=== PATIENT | female | born 1955 | race Caucasian/White ===

== ENCOUNTER 2021-06-07 13:46 | Emergency (ER) | payer OTHER ==
[2021-06-07] MEDS ORDERED: Sodium Chloride 0.9% 10 ML Syringe FLUSH PRN (14:29)
[2021-06-07] MEDS ORDERED: Ondansetron 4 MG/2 ML SDV IVPUSH ONE (14:33)
[2021-06-07] MEDS ORDERED: Sodium Chloride 0.9% 1,000 ML IV SCH ×2 (14:45→17:15)
[2021-06-07 15:20] LABS: CORONAVIRUS COVID-19 NAA NEGATIVE (NEGATIVE); RESPIRATORY SYNCYTIAL VIR NAA NEGATIVE (NEGATIVE)
[2021-06-07] MEDS ORDERED: Acetaminophen 500 MG Tab PO ONE (15:45)
--- NOTE | 2021-06-07 15:53 | CR ---
[id number] RAD/RAD Chest PA or AP 1V EXAM: RAD Chest PA or AP 1V INDICATION: FEVER, CHILLS, WEAKNESS. COMPARISON: None. DISCUSSION: Cardiomediastinal silhouette is normal in size and contour. Subtle pulmonary infiltrates overlying the lungs bilaterally. No pneumothorax or pleural effusion. IMPRESSION: Subtle pulmonary infiltrates overlying the lungs bilaterally. Findings may be infectious/inflammatory as can be seen with atypical/viral pneumonia. Chris Clark DO 06/07/21 [id number] Thank you for allowing us to participate in the care of your patient.
[2021-06-07] MEDS ORDERED: cefTRIAXone 2 GM Vial IVPUSH ONE (15:59)
[2021-06-07] MEDS ORDERED: Doxycycline 100 MG Cap PO ONE (16:02)
[2021-06-07 16:25] LABS: ANION GAP 12.5 mmol/L (5-15); CHLORIDE,CL 98 mmol/L (98-107); SODIUM,NA 131 mmol/L (136-145)
--- NOTE | 2021-06-07 21:37 | EDM.PDOC ---
ED HPI GENERAL MEDICAL PROBLEM - General Chief Complaint: Fever Stated Complaint: Fever, Nausea Time Seen by Provider: 06/07/21 15:05 Source of Information: Reports: Patient History Limitations: Reports: No Limitations - History of Present Illness INITIAL COMMENTS - FREE TEXT/NARRATIVE: Pt. presents to ER with complaints of nausea, vomiting, fever, chills, fatigue and global weakness. She states that she has been feeling poorly for about 4 days. She was seen in the clinic for the same yesterday, and advised to come to ER if not gradually improving. Pt. states that she has not been taking any tylenol as is makes her nauseous, despite premedication with zofran ODT. She denies any substernal chest pain. No shortness of breath. states that she appear more fatigued than normal. He states that she is slower to respond, but her speech has been fluent and her gait has been normal. He is concerned that she is dehydrated. She was told that she was at the clinic yesterday at the clinic and to come to the ER, as they were unable to get an IV started. She states that her appetite has been poor but she is able to hold down fluids. She was given some Zofran ODT but states that she is still unable to take tylenol due to nausea, despite using the zofran. She has had some minor cough. She was screened for covid yesterday which was negative. Onset: Today Onset Date: 06/07/21 Location: Reports: Abdomen, Generalized Associated Symptoms: Reports: Cough, Fever/Chills, Nausea/Vomiting Headache / Body Aches Pain Score (Numeric/FACES): 2 - Related Data Allergies Allergy/AdvReac Type Severity Reaction Status Date / Time erythromycin base Allergy Stomach Verified 06/07/21 16:03 Upset Home Meds: Home Meds . [Unable to Verify Home Med List] 06/07/21 [History] Social & Family History - Tobacco Use Tobacco Use Status *Q: Never Tobacco User - Recreational Drug Use Recreational Drug Use: No ED ROS GENERAL - Review of Systems Review Of Systems: See Below Constitutional: Reports: Fever, Chills, Malaise, Weakness, Fatigue, Decreased Appetite HEENT: Reports: No Symptoms Respiratory: Reports: No Symptoms Cardiovascular: Reports: No Symptoms Endocrine: Reports: No Symptoms GI/Abdominal: Reports: No Symptoms : Reports: No Symptoms Musculoskeletal: Reports: No Symptoms Skin: Reports: No Symptoms Neurological: Reports: No Symptoms Psychiatric: Reports: No Symptoms Hematologic/Lymphatic: Reports: No Symptoms Immunologic: Reports: No Symptoms ED EXAM, GENERAL - Physical Exam Exam: See Below Exam Limited By: No Limitations General Appearance: Alert, WD/WN, No Apparent Distress Throat/Mouth: Normal Inspection, Normal Lips, Normal Teeth, Normal Gums, Normal Oropharynx, Normal Voice, No Airway Compromise Head: Atraumatic, Normocephalic Neck: Normal Inspection, Supple, Non-Tender, Full Range of Motion Respiratory/Chest: No Respiratory Distress, Normal Breath Sounds, No Accessory Muscle Use, Chest Non-Tender, Other (lungs diminshed in the base) Cardiovascular: Normal Peripheral Pulses, Regular Rate, Rhythm, No Edema, No JVD Peripheral Pulses: 4+: Radial (L) GI/Abdominal: Soft, Non-Tender, No Distention, No Mass (Female) Exam: Deferred Rectal (Female) Exam: Deferred Back Exam: Normal Inspection, Full Range of Motion Extremities: Normal Inspection, Normal Range of Motion, Non-Tender, No Pedal Edema, Normal Capillary Refill Neurological: Alert, Oriented, CN II-XII Intact, Normal Cognition, Normal Gait, Normal Reflexes, No Motor/Sensory Deficits Psychiatric: Normal Affect, Normal Mood Course - Vital Signs Last Recorded V/S: Last Vital Signs Temp 38.7 C H 06/07/21 15:58 Pulse 84 06/07/21 15:00 Resp 12 06/07/21 15:00 BP 138/67 06/07/21 15:00 Pulse Ox 98 06/07/21 15:00 - Orders/Labs/Meds Orders: Active Orders 24 hr Category Date Time Status CULTURE BLOOD [BC] Stat Lab 06/07/21 15:36 Results CULTURE BLOOD [BC] Stat Lab 06/07/21 16:16 Results Blood Culture x2 Reflex Set [OM.PC] Stat Oth 06/07/21 14:30 Ordered Peripheral IV Insertion Adult [OM.PC] Routine Oth 06/07/21 14:30 Ordered Labs: Laboratory Tests 06/07/21 06/07/21 06/07/21 Range/Units 14:32 15:36 15:36 WBC 16.4 H (4.0-10.0) x10^3/uL RBC 4.44 (4.00-5.50) x10^6/uL Hgb 13.1 (12.0-16.0) g/dL Hct 37.8 (33.0-47.0) % MCV 85.1 (78.0-93.0) fL MCH 29.5 (26.0-32.0) pg MCHC 34.7 (32.0-36.0) g/dL RDW Coeff of Yehuda 12.3 (10.0-15.0) % Plt Count 189 (130-400) x10^3/uL Add Manual Diff Yes Neutrophils % (Manual) 92 H (50-80) % Lymphocytes % (Manual) 4 L (25-50) % Reactive Lymphs % 2 H (0) % Monocytes % (Manual) 2 (2-11) % Hypersegmented Neuts Rare H Smudge Cells Rare H Platelet Estimate Adequate Giant Platelets Rare H PT 10.4 (9.9-12.5) SEC INR 0.9 L (2.0-3.5) Sodium (136-145) mmol/L Potassium (3.5-5.1) mmol/L Chloride (98-107) mmol/L Carbon Dioxide (21-32) mmol/L Anion Gap (5-15) mmol/L BUN (7-18) mg/dL Creatinine (0.55-1.02) mg/dL Est Cr Clr Drug Dosing Estimated GFR (MDRD) Glucose (70-99) mg/dL Lactic Acid (0.4-2.0) mmol/L Calcium (8.5-10.1) mg/dL Corrected Calcium (8.5-10.1) mg/dL Phosphorus (2.6-4.7) mg/dL Magnesium (1.8-2.4) mg/dL Total Bilirubin (0.2-1.0) mg/dL AST (15-37) U/L ALT (14-59) U/L Alkaline Phosphatase (46-116) U/L Troponin I High Sens (<=51) ng/L NT-Pro-B Natriuret Pep (<=125) pg/mL Total Protein (6.4-8.2) g/dL Albumin (3.4-5.0) g/dL Globulin Albumin/Globulin Ratio Procalcitonin (0.1-0.50) ng/mL Urine Color (YELLOW) Urine Appearance (CLEAR) Urine pH (5.0-8.0) Ur Specific [place] Urine Protein (NEGATIVE) mg/dL Urine Glucose (UA) (NEGATIVE) mg/dL Urine Ketones (NEGATIVE) mg/dL Urine Occult Blood (NEGATIVE) Urine Nitrite (NEGATIVE) Urine Bilirubin (NEGATIVE) Urine Urobilinogen (0.2) EU/dL Ur Leukocyte Esterase (NEGATIVE) Urine RBC (NOT SEEN) /HPF Urine WBC (NOT SEEN) /HPF Ur Squamous Epith Cells (NOT SEEN) /HPF Urine Bacteria (NOT SEEN) /HPF Urine Mucus (NOT SEEN) /LPF Influenza Type A RNA Negative (NEGATIVE) RSV RNA (INAAT) Negative (NEGATIVE) Influenza Type B RNA Negative (NEGATIVE) SARS-CoV-2 RNA (RODRIGUEZ) Negative (NEGATIVE) 06/07/21 06/07/21 06/07/21 Range/Units 15:36 15:36 16:16 WBC (4.0-10.0) x10^3/uL RBC (4.00-5.50) x10^6/uL Hgb (12.0-16.0) g/dL Hct (33.0-47.0) % MCV (78.0-93.0) fL MCH (26.0-32.0) pg MCHC (32.0-36.0) g/dL RDW Coeff of Yehuda (10.0-15.0) % Plt Count (130-400) x10^3/uL Add Manual Diff Neutrophils % (Manual) (50-80) % Lymphocytes % (Manual) (25-50) % Reactive Lymphs % (0) % Monocytes % (Manual) (2-11) % Hypersegmented Neuts Smudge Cells Platelet Estimate Giant Platelets PT (9.9-12.5) SEC INR (2.0-3.5) Sodium 131 L (136-145) mmol/L Potassium 3.5 (3.5-5.1) mmol/L Chloride 98 (98-107) mmol/L Carbon Dioxide 24 (21-32) mmol/L Anion Gap 12.5 (5-15) mmol/L BUN 13 (7-18) mg/dL Creatinine 1.0 (0.55-1.02) mg/dL Est Cr Clr Drug Dosing TNP Estimated GFR (MDRD) 56 Glucose 106 H (70-99) mg/dL Lactic Acid 1.0 (0.4-2.0) mmol/L Calcium 8.6 (8.5-10.1) mg/dL Corrected Calcium 9.2 (8.5-10.1) mg/dL Phosphorus 2.1 L (2.6-4.7) mg/dL Magnesium 1.9 (1.8-2.4) mg/dL Total Bilirubin 0.6 (0.2-1.0) mg/dL AST 16 (15-37) U/L ALT 20 (14-59) U/L Alkaline Phosphatase 65 (46-116) U/L Troponin I High Sens 41 (<=51) ng/L NT-Pro-B Natriuret Pep 1147 H (<=125) pg/mL Total Protein 6.7 (6.4-8.2) g/dL Albumin 3.3 L (3.4-5.0) g/dL Globulin 3.4 Albumin/Globulin Ratio 0.97 Procalcitonin <0.05 L (0.1-0.50) ng/mL Urine Color (YELLOW) Urine Appearance (CLEAR) Urine pH (5.0-8.0) Ur Specific [place] Urine Protein (NEGATIVE) mg/dL Urine Glucose (UA) (NEGATIVE) mg/dL Urine Ketones (NEGATIVE) mg/dL Urine Occult Blood (NEGATIVE) Urine Nitrite (NEGATIVE) Urine Bilirubin (NEGATIVE) Urine Urobilinogen (0.2) EU/dL Ur Leukocyte Esterase (NEGATIVE) Urine RBC (NOT SEEN) /HPF Urine WBC (NOT SEEN) /HPF Ur Squamous Epith Cells (NOT SEEN) /HPF Urine Bacteria (NOT SEEN) /HPF Urine Mucus (NOT SEEN) /LPF Influenza Type A RNA (NEGATIVE) RSV RNA (INAAT) (NEGATIVE) Influenza Type B RNA (NEGATIVE) SARS-CoV-2 RNA (RODRIGUEZ) (NEGATIVE) 06/07/21 Range/Units 16:45 WBC (4.0-10.0) x10^3/uL RBC (4.00-5.50) x10^6/uL Hgb (12.0-16.0) g/dL Hct (33.0-47.0) % MCV (78.0-93.0) fL MCH (26.0-32.0) pg MCHC (32.0-36.0) g/dL RDW Coeff of Yehuda (10.0-15.0) % Plt Count (130-400) x10^3/uL Add Manual Diff Neutrophils % (Manual) (50-80) % Lymphocytes % (Manual) (25-50) % Reactive Lymphs % (0) % Monocytes % (Manual) (2-11) % Hypersegmented Neuts Smudge Cells Platelet Estimate Giant Platelets PT (9.9-12.5) SEC INR (2.0-3.5) Sodium (136-145) mmol/L Potassium (3.5-5.1) mmol/L Chloride (98-107) mmol/L Carbon Dioxide (21-32) mmol/L Anion Gap (5-15) mmol/L BUN (7-18) mg/dL Creatinine (0.55-1.02) mg/dL Est Cr Clr Drug Dosing Estimated GFR (MDRD) Glucose (70-99) mg/dL Lactic Acid (0.4-2.0) mmol/L Calcium (8.5-10.1) mg/dL Corrected Calcium (8.5-10.1) mg/dL Phosphorus (2.6-4.7) mg/dL Magnesium (1.8-2.4) mg/dL Total Bilirubin (0.2-1.0) mg/dL AST (15-37) U/L ALT (14-59) U/L Alkaline Phosphatase (46-116) U/L Troponin I High Sens (<=51) ng/L NT-Pro-B Natriuret Pep (<=125) pg/mL Total Protein (6.4-8.2) g/dL Albumin (3.4-5.0) g/dL Globulin Albumin/Globulin Ratio Procalcitonin (0.1-0.50) ng/mL Urine Color Light yellow (YELLOW) Urine Appearance Clear (CLEAR) Urine pH 6.0 (5.0-8.0) Ur Specific [place] 1.010 Urine Protein Negative (NEGATIVE) mg/dL Urine Glucose (UA) Negative (NEGATIVE) mg/dL Urine Ketones 15 H (NEGATIVE) mg/dL Urine Occult Blood Trace-lysed H (NEGATIVE) Urine Nitrite Negative (NEGATIVE) Urine Bilirubin Negative (NEGATIVE) Urine Urobilinogen 0.2 (0.2) EU/dL Ur Leukocyte Esterase Negative (NEGATIVE) Urine RBC 0-5 (NOT SEEN) /HPF Urine WBC 0-5 (NOT SEEN) /HPF Ur Squamous Epith Cells Moderate H (NOT SEEN) /HPF Urine Bacteria Not seen (NOT SEEN) /HPF Urine Mucus Not seen (NOT SEEN) /LPF Influenza Type A RNA (NEGATIVE) RSV RNA (INAAT) (NEGATIVE) Influenza Type B RNA (NEGATIVE) SARS-CoV-2 RNA (RODRIGUEZ) (NEGATIVE) Meds: Medications Discontinued Medications Generic Name Dose Route Start Last Admin Trade Name Freq PRN Reason Stop Dose Admin Acetaminophen 500 mg 06/07/21 15:45 06/07/21 15:58 Acetaminophen 500 Mg Tab PO 06/07/21 15:46 500 mg ONETIME ONE Administration Ceftriaxone Sodium 2 gm 06/07/21 15:59 06/07/21 16:10 Ceftriaxone 2 Gm Vial IVPUSH 06/07/21 16:00 2 gm STAT ONE Administration Doxycycline Hyclate 100 mg 06/07/21 16:02 06/07/21 16:10 Doxycycline 100 Mg Cap PO 06/07/21 16:03 100 mg ONETIME ONE Administration Sodium Chloride 1,000 mls @ 1,000 mls/hr 06/07/21 14:45 06/07/21 15:21 Normal Saline IV 1,000 mls/hr ASDIRECTED DARIAN Administration Sodium Chloride 1,000 mls @ 1,000 mls/hr 06/07/21 17:15 06/07/21 17:14 Normal Saline IV 1,000 mls/hr ASDIRECTED DARIAN Administration Ondansetron HCl 4 mg 06/07/21 14:33 06/07/21 15:25 Ondansetron 4 Mg/2 Ml Sdv IVPUSH 06/07/21 14:34 4 mg ONETIME ONE Administration Sodium Chloride 10 ml 06/07/21 14:29 Sodium Chloride 0.9% 10 Ml Syringe FLUSH ASDIRECTED PRN Keep Vein Open - Radiology Interpretation Free Text/Narrative:: bilateral subtle pulmonary infiltrates Departure - Departure Time of Disposition: 18:14 Disposition: Home, Self-Care 01 Clinical Impression: Pneumonia - Discharge Information Instructions: Community-Acquired Pneumonia, Adult, [id number] Referrals: Bill Dove [employer] [Primary Care Provider] - Forms: ED Department Discharge, ED Return to Work/School Form Additional Instructions: Home to rest. Doxycycline 100mg 1 tab twice daily for 10 days Zofran 4mg ODT every 6 hours for nausea/vomiting Reglan 10mg 1 tab every 4-6 hours as needed for nausea/vomiting Recheck in clinic in 10-14 days Sepsis Event Note (ED) - Evaluation Sepsis Screening Result: Possible Severe Sepsis Risk - Focused Exam Vital Signs: Vital Signs Temp Temp Pulse Resp BP Pulse Ox 06/07/21 15:58 38.7 C H 06/07/21 15:00 38.7 C H 84 12 138/67 98 - Problem List Review Problem List Initiated/Reviewed/Updated: Yes - My Orders Last 24 Hours: My Active Orders 06/07/21 14:30 Blood Culture x2 Reflex Set [OM.PC] Stat Peripheral IV Insertion Adult [OM.PC] Routine 06/07/21 15:36 CULTURE BLOOD [BC] Stat 06/07/21 16:16 CULTURE BLOOD [BC] Stat - Assessment/Plan Last 24 Hours: My Active Orders 06/07/21 14:30 Blood Culture x2 Reflex Set [OM.PC] Stat Peripheral IV Insertion Adult [OM.PC] Routine 06/07/21 15:36 CULTURE BLOOD [BC] Stat 06/07/21 16:16 CULTURE BLOOD [BC] Stat Plan: Home to rest. Doxycycline 100mg 1 tab twice daily for 10 days Zofran 4mg ODT every 6 hours for nausea/vomiting Reglan 10mg 1 tab every 4-6 hours as needed for nausea/vomiting Recheck in clinic in 10-14 days
== END 2021-06-07 18:14 | disposition home or self-care (01) ==
LOC: VM.ED 13:46
DX: J18.9 Pneumonia, unspecified organism (principal); Z88.1 Allergy status to other antibiotic agents; Z20.822 Contact with and (suspected) exposure to COVID-19
CPT/HCPCS: 0241U; 36415; 71045; 80053; 81001; 83605; 83735; 83880; 84100; 84145; 84484; 85025; 85610; 87040; 96374; 96375; 99284; 99284-25; A9270-GY; J0696; J2405; J7030

== ENCOUNTER 2022-05-21 09:59 | Emergency (ER) | payer MEDICARE, BC ==
[2022-05-21 10:54] LABS: CHLORIDE,CL 102 mmol/L (98-107); SODIUM,NA 136 mmol/L (136-145)
[2022-05-21 10:58] LABS: ANION GAP 15.4 mmol/L (5-15); ESTIMATED GFR 71 mL/min (>=60)
[2022-05-21] MEDS ORDERED: GI Cocktail Oral Solution 30 ML PO ONE (11:08)
[2022-05-21] MEDS ORDERED: Aspirin 81 MG Tab.Chew PO ONE (11:16)
[2022-05-21] MEDS ORDERED: Sucralfate 1 GM Tab PO ONE (11:43)
== END 2022-05-21 11:57 | disposition home or self-care (01) ==
LOC: VM.ED 09:59
DX: K20.90 Esophagitis, unspecified without bleeding (principal); Z88.1 Allergy status to other antibiotic agents; Z79.899 Other long term (current) drug therapy
CPT/HCPCS: 36415; 80053; 82550; 83615; 84484; 85025; 93005; 99284; 99285; A9270-GY